=== PATIENT | male | born 1930 | race Caucasian/White ===

== ENCOUNTER → 2016-11-19 | Outpatient (CLI) | payer MEDICARE, BC ==
[~2016-11-19] MED LIST: ANTIVERT 25MG25 MG PO; ASPIRIN 81M81 MG/TA2 PO; CEPHALEXIN500 M1 PO; CORDARONE200 MG/TAB PO; COUMADIN 22.5 MG/TAB PO; FLOMAX 0.40.4 MG/CAP PO; LASIX 20MG TABL20 MG PO; LIQUIFILM TEARS15 ML OS; LOPRESSOR 225 MG/TAB PO; MASON NATURAL1200 MG PO; MAXI VISION PO; MUCINEX D1 TER PO; NORCO 325 MG-51 TAB PO; PACERONE200 MG PO; REFRESH TEARS 115 ML OP; SYNTHROID 0.0.025 MG PO; TIROSINT100 MC1 PO; TIROSINT50 MC1 PO; TYLENOL 500MG500 MG PO; XARELTO10 MG PO; XARELTO20 MG PO; ZESTRIL 5MG5 MG PO; ZESTRIL2.5 MG PO
== END ==
LOC: COL.RAD 09:40
DX: D41.01 Neoplasm of uncertain behavior of right kidney (principal); N40.0 Benign prostatic hyperplasia without lower urinary tract symptoms

== ENCOUNTER → 2017-11-20 | Outpatient (CLI) | payer MEDICARE, BC | LOC: ZCOL.LAB 16:15 | DX: L72.0 Epidermal cyst (principal) ==

== ENCOUNTER 2021-02-27 06:20 | Inpatient (IN) | payer MEDICARE ==
[2021-02-27] VITALS (15 sets, daily range): BP systolic 102–127; BP diastolic 40–84; PULSE 68–91; TEMP 97.1–98.7
[~2021-02-27] VITALS: Ht 183 cm; Wt 85.1 kg
[~2021-02-27 06:20] MED LIST changes: -LIQUIFILM TEARS15 ML OS; -MAXI VISION PO; +TIROSINT112 MC1 PO; -TIROSINT50 MC1 PO
[2021-02-27 07:02] LABS: ALANINE AMINOTRANSFERASE 16 U/L (4-49); ALBUMIN 3.4 gm/dL (3.5-5.0); ALKALINE PHOSPHATASE 37 U/L (50-136); ANION GAP 6 mmol/L (7-16); AST,SGOT 24 U/L (15-37); BILIRUBIN,TOTAL < 0.1 mg/dL (0.0-1.0); BLOOD UREA NITROGEN 59 mg/dL (9-20); CALCIUM 8.1 mg/dL (8.4-10.2); CARBON DIOXIDE 22 mmol/L (22-30); CHLORIDE 110 mmol/L (98-107); CREATININE, serum 1.14 (0.66-1.25); GLUCOSE 121 mg/dL (74-106); LIPASE 47 U/L (23-300); POTASSIUM 4.2 mmol/L (3.4-5.0); SODIUM 138 mmol/L (137-145); TOTAL PROTEIN 6.2 gm/dL (6.4-8.2)
[2021-02-27 07:05] LABS: PARTIAL THROMBOPLASTIN TIME 32.8 SECONDS (26.0-37.0)
[2021-02-27 07:16] LABS: TROPONIN-I < 0.012 ng/mL (0.000-0.035)
[2021-02-27 07:23] LABS: INR 5.8 (0.8-3.0); PROTHROMBIN TIME 65.8 SECONDS (9.7-12.8)
[2021-02-27 07:38] LABS: BASO % 0.4 % (0.0-2.0); EOS # 0.1 (0.0-0.7); EOS % 0.8 % (0-4.0); GRAN # 6.3 (1.4-6.5); GRAN % 73.2 % (42.2-75.2); LYMPH # 1.4 (1.2-3.4); LYMPH % 16.4 % (20.0-51.0); MEAN CELL VOLUME 95 fl (80.0-100.0); MEAN CORPUSCULAR HGB CONC 32 g/dl (33.0-37.0); MEAN PLATELET VOLUME 11.3 fl (7.4-10.4); MONO # 0.7 (0.1-0.6); MONO % 8.1 % (1.7-9.3); PLATELET COUNT 156 K/mm3 (130-400); RED BLOOD COUNT 2.62 M/mm3 (4.20-5.60); REDCELL DISTRIBUTION WIDTH-CV 13.6 % (11.5-14.5)
[2021-02-27 07:40] LABS: HEMOGLOBIN 8.1 g/dl (13.5-18.0); MEAN CORPUSCULAR HEMOGLOBIN 31 pg (27.0-31.0)
[2021-02-27] MEDS ORDERED: LIPITOR 10MG10 MG PO (08:10)
[2021-02-27] MEDS ORDERED: MULTI-VITAMIN W1 TA1 PO (08:20)
[2021-02-27] MEDS ORDERED: VITAMINC1000TA (08:21)
--- NOTE | 2021-02-27 11:38 | NUR ---
ATTEMPTED TO GET ORTHOSTATIC PRESSURES ON PT. PT WENT FROM LAYING TO SITTING WITH LITTLE TO NO DIFFICULTY. WHEN PT WAS STANDING PT SAID THE ROOM STARTED SPINNING AND HE FELL BACK INTO THE BED SUPPORTED BY NURSE AND TECH, PT NOW LAYING FLAT IN BED AND REPORTS MILD DIZZINESS BUT THAT IT WAS LESSENING. UNABLE TO GET STANDING PRESSURE.
[2021-02-27 13:27] LABS: TSH w REFLEX 0.256 uIU/mL (0.465-4.680)
[2021-02-27 13:53] LABS: TROPONIN-I < 0.012 ng/mL (0.000-0.035)
[2021-02-27 15:32] LABS: HEMATOCRIT 21.8 % (42.0-52.0); HEMOGLOBIN 7.2 g/dl (13.5-18.0)
--- NOTE | 2021-02-27 17:08 | NUR ---
CONSULT CALLED TO DR. DISLA
--- NOTE | 2021-02-27 18:31 | NUR ---
BLOOD JUST BECAME AVAILABLE FOR PT, BRUISE TO R FLANK, LIDOCAINE PATCH PLACED, PT REPORTS DISCOMFORT WITH RIBS AND FLANK. TYLENOL GIVEN. OTHER PAIN MEDS AVAILABLE IF THIS DOES NOT SUFFICE. HAS BEEN GIVEN PERMISSION BY RADHA HOLMAN TO STAY THE NIGHT. SON ASHLEY BROWN SHOULD BE COMING TONIGHT ACCORDING TO THE . HAVE NOT ATTEMPTED TO STAND UP PATIENT AGAIN, PT USES URINAL AT BEDSIDE W/O DIZZINESS.
[2021-02-27 19:41] LABS: HEMATOCRIT 19.8 % (42.0-52.0); HEMOGLOBIN 6.5 g/dl (13.5-18.0)
--- NOTE | 2021-02-27 20:00 | NUR ---
Assessment complete. , Mary, currently at bedside. Patient is alert and oriented with a tolerable level of pain, managed with lidocaine patch. HR is normal/regular and lungs are clear. A contusion/laceration is noted on the back of patient's head; it is not actively bleeding. A large bruise in noted on patient's right lower back; no signs of hematoma are noted. Patient is breathing well on RA. 2 units FFP and 1 unit PRBC are ordered to be administered tonight and this process has been initiated. Will continue to monitor.
--- NOTE | 2021-02-27 20:05 | NUR ---
Transfusion of 1 unit FFP initiated at this time. Patient educated on signs of transfusion reaction. Patient has tolerated transfusion so far. Transfusion running at 300 ml/hr. Will continue to monitor. Did remain at bedside for first 15 minutes of transfusion.
--- NOTE | 2021-02-27 21:47 | NUR ---
2ND UNIT OF FFP INITIATED AT THIS TIME. REMAINED AT BEDSIDE FOR FIRST 15 MINUTES. PATIENT TOLERATED WELL; HE AND WERE EDUCATED ON S/S OF TRANSFUSION REACTIONS PRIOR TO INITIATION. WILL CONTINUE TO MONITOR.
[2021-02-28] VITALS (13 sets, daily range): BP systolic 112–131; BP diastolic 47–69; PULSE 64–101; TEMP 97.6–98.5
[2021-02-28 04:03] LABS: HEMOGLOBIN 6.6 g/dl (13.5-18.0)
--- NOTE | 2021-02-28 06:02 | NUR ---
PT TOLERATING 2ND BLOOD ADMINISTRATION WELL. PT IS FREE OF PAIN, FEVER, CHILLS, SOB.VSS. BLOOD INFUSING AT 150 ML/HR. WILL CONTINUE TO MONITOR. CALL LIGHT WITHIN REACH.
--- NOTE | 2021-02-28 08:00 | NUR ---
PT PLEASANT, AOX4, PT REPORTS R FLANK PAIN WITH MOVEMENT BUT NONE AT REST. PT COUGHING VERY FREQUENTLY WHILE EATING BREAKFAST. BLOOD FINISHED INFUSING, PT VITALS TAKEN AND REVIEWED, ASSESSMENT PERFORMED, MEDICATIONS GIVEN, AT BEDSIDE, NO OTHER NEEDS.
[2021-02-28 09:56] LABS: CALCIUM 8.1 mg/dL (8.4-10.2); CREATININE, serum 1.06 (0.66-1.25); POTASSIUM 3.8 mmol/L (3.4-5.0)
[2021-02-28 09:59] LABS: BASO % 0.2 % (0.0-2.0); EOS # 0.1 (0.0-0.7); EOS % 0.7 % (0-4.0); GRAN # 7.4 (1.4-6.5); GRAN % 74.5 % (42.2-75.2); LYMPH # 1.2 (1.2-3.4); LYMPH % 12.4 % (20.0-51.0); MEAN CELL VOLUME 91 fl (80.0-100.0); MEAN CORPUSCULAR HGB CONC 34 g/dl (33.0-37.0); MEAN PLATELET VOLUME 10.6 fl (7.4-10.4); MONO # 1.1 (0.1-0.6); MONO % 11.3 % (1.7-9.3); PLATELET COUNT 123 K/mm3 (130-400); RED BLOOD COUNT 2.47 M/mm3 (4.20-5.60); REDCELL DISTRIBUTION WIDTH-CV 14.2 % (11.5-14.5)
[2021-02-28 10:00] LABS: HEMATOCRIT 22.4 % (42.0-52.0); HEMOGLOBIN 7.6 g/dl (13.5-18.0); MEAN CORPUSCULAR HEMOGLOBIN 31 pg (27.0-31.0)
[2021-02-28 10:09] LABS: INR 3.7 (0.8-3.0); PROTHROMBIN TIME 41.5 SECONDS (9.7-12.8)
--- NOTE | 2021-02-28 14:27 | NUR ---
EJ met with the patient and his , Mary (ph#[phone]), to discuss discharge plan. The patient lives in [place] with Mary. He reports independence with ADLs and has a cane, walker, and wheelchair. The patient's PCP is Dr. Uyen Haque and he receives his medications from [email or web address] in . They report no difficulties obtaining his meds. The patient does not have a DPOA-HC in EMR, but he states that he does have one completed and that it designates his children: Eladio Dodge, Hellen Varela, and Gurjit Varela. His reports that they do not have a copy with them. The patient plans to return home with his upon discharge. PT/OT recommend home health. EJ discussed home health and it's benefits with the patient and his and provided them with Medicare.gov's list of home health agencies that serve [place]. The patient and his report that they are unsure if they want home health upon discharge. The patient has Medicare [employer]. Mary reports that if they do decide they want home health, then they would prefer [facility]. She was agreeable for EJ to contact [facility] to inquire if they take [employer]. EJ then contacted Selena at [facility]. Selena reports that they would have to review the patient's information before deciding on whether they would take the patient's insurance and accept him. EJ informed Mary of this. Mary was agreeable for EJ to go ahead and send the referral to [facility], but they have not decided if they will want home health or not yet upon discharge. EJ to continue to follow. *Discharge plan: home with and possibly home health*
--- NOTE | 2021-02-28 17:29 | NUR ---
PT PLEASANT, AOX4, DID REPORT GETTING DIZZY WALKING WITH THERAPY, PT HAS BEEN EATING WELL, C/O PAIN WITH MOVEMENT BUT NONE AT REST, LIDOCAINE PATCH IN PLACE, AT BEDSIDE, NEURO CONSULTED, NO OTHER NEEDS AT THIS TIME.
[2021-03-01] VITALS (24 sets, daily range): BP systolic 85–149; BP diastolic 33–71; PULSE 62–97; TEMP 97.6–98.4
--- NOTE | 2021-03-01 00:46 | NUR ---
PT LAYING IN BED WITH AT BEDSIDE. PT A/O X4, VSS, 02 ROOM AIR. PT REPORTS FEELING SLIGHTLY NAUSEATED, ONLY DIZZY UPON TRANSFERRING FROM POSITION TO POSITION. CURRENTLY RATES PAIN AT 3/10, WITH CONSTANT DISCOMFORT TO HIS LOWER BACK SIDE . PT STATES HE FEELS HE A BIT CONGESTED WITH MUCUS BUILDUP. WILL F/U. PT EXPRESSES NO ADDITIONAL NEEDS AT THIS TIME. CALL LIGHT WITHIN REACH.
--- NOTE | 2021-03-01 05:07 | NUR ---
PT REPORTS PAIN TO LOWER BACK, RATES PAIN 8/10. PT MEDICATED AND REPOSITIONED. DENIES SOB, N/V/D. NPO STATUS MAINTAINED. CALL LIGHT WITHIN REACH.
[2021-03-01 07:03] LABS: CALCIUM 8.1 mg/dL (8.4-10.2); CREATININE, serum 1.07 (0.66-1.25)
[2021-03-01 07:05] LABS: BASO % 0.2 % (0.0-2.0); EOS # 0.2 (0.0-0.7); EOS % 2.4 % (0-4.0); GRAN # 6.3 (1.4-6.5); GRAN % 66.5 % (42.2-75.2); LYMPH # 1.8 (1.2-3.4); LYMPH % 19.4 % (20.0-51.0); MEAN CELL VOLUME 93 fl (80.0-100.0); MEAN CORPUSCULAR HGB CONC 34 g/dl (33.0-37.0); MEAN PLATELET VOLUME 10.7 fl (7.4-10.4); MONO % 10.5 % (1.7-9.3); PLATELET COUNT 127 K/mm3 (130-400); RED BLOOD COUNT 2.18 M/mm3 (4.20-5.60); REDCELL DISTRIBUTION WIDTH-CV 15.2 % (11.5-14.5)
[2021-03-01 07:06] LABS: INR 3.2 (0.8-3.0); PROTHROMBIN TIME 36.4 SECONDS (9.7-12.8)
[2021-03-01 07:08] LABS: HEMATOCRIT 20.2 % (42.0-52.0); HEMOGLOBIN 6.8 g/dl (13.5-18.0); MEAN CORPUSCULAR HEMOGLOBIN 31 pg (27.0-31.0)
--- NOTE | 2021-03-01 08:35 | NUR ---
Pt down for Lexiscan at this time.
--- NOTE | 2021-03-01 10:00 | NUR ---
Shift assessment complete. A&Ox4. Heart RRR. Lungs CTA. Reports no BM for 4-5 days, colace and miralax given per orders. Abdomen soft, flat, non-tender. Bowel sounds active all quadrants. Large bruise to left lower back, pt reports some pain at this site, worse w/movement. Declines pain medication at this time. Laceration to scalp w/magno. Denies needs. Call light in reach.
--- NOTE | 2021-03-01 11:01 | NUR ---
Selena, at [facility], reports that they are able to accept the patient for services.
[2021-03-01 12:29] LABS: IRON,SERUM 35 ug/dL (35-150)
[2021-03-01 12:38] LABS: TOTAL IRON BINDING CAPACITY 243 ug/dL (261-462)
--- NOTE | 2021-03-01 12:43 | NUR ---
Blood transfusion started at this time. VSS.
--- NOTE | 2021-03-01 14:45 | NUR ---
Blood transfusion complete. Pt tolerated well. Vitals remain stable.
[2021-03-01 16:26] LABS: HEMATOCRIT 24.2 % (42.0-52.0)
[2021-03-01 16:26] LABS: COLLECTION METHOD CLEAN CATCH
[2021-03-01 16:33] LABS: MUCOUS Present /lpf; PH 5 (5-8); SQUAMOUS EPITHELIAL None Seen /hpf; URINE APPEARANCE Hazy; URINE BACTERIA None Seen /hpf; URINE BILIRUBIN Negative (NEGATIVE); URINE BLOOD Negative (NEGATIVE); URINE COLOR Yellow; URINE GLUCOSE Negative (NEGATIVE); URINE KETONE Negative (NEGATIVE); URINE LEUKOCYTE ESTERASE Negative (NEGATIVE); URINE NITRATE Negative (NEGATIVE); URINE PROTEIN(semi-quant) Negative (NEGATIVE); URINE RBC 0-2 /hpf; URINE UROBILINOGEN Negative (NEGATIVE)
--- NOTE | 2021-03-01 20:30 | NUR ---
Initial shift assessment done- Pt states having some pain to right flank/back,,bruise noted,, pt given a [place] as ordered, Tele on, using urinal -voiding marquis colored urine. SCD,s put on patient at this time per order, Pt understands we need a stool to check for blood-- he will call when needs to use the bathroom, bed alarm on, is in the room with patient. VSS.
[2021-03-02] VITALS (8 sets, daily range): BP systolic 93–147; BP diastolic 44–92; PULSE 61–112; TEMP 97.5–98.6
--- NOTE | 2021-03-02 05:37 | NUR ---
Quiet night- has been sleeping well, just given the one [place] at start of shift--using urinal and did walk to BR once during the night with assistance , steady on feet. No stools
[2021-03-02 06:32] LABS: MEAN CELL VOLUME 91 fl (80.0-100.0); MEAN CORPUSCULAR HGB CONC 33 g/dl (33.0-37.0); MEAN PLATELET VOLUME 10.7 fl (7.4-10.4); PLATELET COUNT 148 K/mm3 (130-400); RED BLOOD COUNT 2.68 M/mm3 (4.20-5.60); REDCELL DISTRIBUTION WIDTH-CV 17.9 % (11.5-14.5)
[2021-03-02 06:40] LABS: CALCIUM 8.2 mg/dL (8.4-10.2); CREATININE, serum 1.05 (0.66-1.25); INR 2.1 (0.8-3.0); PROTHROMBIN TIME 23.7 SECONDS (9.7-12.8)
[2021-03-02 06:42] LABS: HEMATOCRIT 24.5 % (42.0-52.0); HEMOGLOBIN 8.1 g/dl (13.5-18.0); MEAN CORPUSCULAR HEMOGLOBIN 30 pg (27.0-31.0)
[2021-03-02] MEDS ORDERED: LIQUIFILM TEARS15 ML OS (08:09)
[2021-03-02] MEDS ORDERED: MAXI VISION PO (08:10)
--- NOTE | 2021-03-02 08:15 | NUR ---
Shift assessment complete. A&Ox4. Neuro checks WNL. Heart RRR. Lungs CTA. Abdomen firm, non-tender. Bowel sounds active all quadrants. Miralax and colace given as ordered and pt brought a cup of prune juice. Reports back pain is tolerable when sitting in bed. Does report some dizziness w/sitting or standing up. Encouraged to rise slowly and always call for assistance. Denies other needs. Continuing to monitor.
[2021-03-02] MEDS ORDERED: FLONASE NASAL S16 GM NS (09:05)
[2021-03-02] MEDS ORDERED: ZYRTEC 10MG10 MG PO (09:05)
[2021-03-02] MEDS ORDERED: BLUE-EMU LIDOC1 EACH TP (09:06)
[2021-03-02] MEDS ORDERED: LEVOXYL0.1 MG PO (09:07)
--- NOTE | 2021-03-02 20:30 | NUR ---
Initial shift assessment done-denies pain at this time--doing bowel prep at this time- tanehsa--drinking a glass every about 30 minutes-- tolerating well--no stools yet.Tele on, 64-paced. Alert/oriented- understands to call for assistance to bathroom- call light in reach.
--- NOTE | 2021-03-03 02:00 | NUR ---
Has finished all of the [place] prep- having liquid brown stools.
[2021-03-03 04:30] VITALS: BP 132/54; PULSE 60; TEMP 97.6
--- NOTE | 2021-03-03 05:08 | NUR ---
Has been up to the bathroom with assistance throughout the whole night- has only slept for 30min-1 hr,, stools now are clear yellowish liquid with some sediment. VSS. No requests. Has already signed the consent for this morning.
[2021-03-03 07:24] VITALS: BP 150/63; PULSE 61; TEMP 97.8
[2021-03-03 07:38] LABS: MEAN CELL VOLUME 93 fl (80.0-100.0); MEAN CORPUSCULAR HGB CONC 33 g/dl (33.0-37.0); MEAN PLATELET VOLUME 10.4 fl (7.4-10.4); PLATELET COUNT 181 K/mm3 (130-400); RED BLOOD COUNT 2.83 M/mm3 (4.20-5.60); REDCELL DISTRIBUTION WIDTH-CV 17.8 % (11.5-14.5)
[2021-03-03 07:42] LABS: INR 1.7 (0.8-3.0)
[2021-03-03 07:43] LABS: HEMATOCRIT 26.3 % (42.0-52.0); HEMOGLOBIN 8.6 g/dl (13.5-18.0); MEAN CORPUSCULAR HEMOGLOBIN 30 pg (27.0-31.0)
[2021-03-03 07:53] LABS: CALCIUM 8.3 mg/dL (8.4-10.2); POTASSIUM 3.6 mmol/L (3.4-5.0)
--- NOTE | 2021-03-03 09:00 | NUR ---
Patient just got back to his room from Endoscopy, he is alert/oriented, VSS, pain free, denies needs
[2021-03-03 09:07] VITALS: BP 118/56; PULSE 65; TEMP 98
[2021-03-03 09:30] VITALS: BP 132/52; PULSE 65
--- NOTE | 2021-03-03 12:38 | NUR ---
EJ informed by physician that patient would be discharging. EJ obtained DC orders and faxed to [facility] agency. [facility] agency staff contacted by EJ to inform agency that patient would be discharging and DC paperwork was faxed. Agency staff stated they will give patient a call on 03/04/21. EJ informed patient that [place] staff member would be contacting them. Nothing further.
--- NOTE | 2021-03-03 15:19 | NUR ---
Patient discharging home, instructed to follow up with PCP/Cardiology/Neuro as scheduled, discussed medications changes and new meds, scripts sent to [facility] pharmacy in [place] for him, IV and tele removed, patient is leaving with his , I escorted him out by wheelchair
== END 2021-03-03 14:00 | disposition home or self-care (01) | DRG 312 ==
LOC: COL.ER 06:20 → MEDICAL 08:07
PROVIDERS: Emergency Medicine; Physician Assistant; Surgery; ADMIT Family Medicine
PROC: 0HQ0XZZ Repair Scalp Skin, External Approach (ICD-10-PCS; principal; 2021-02-27)
PROC: 0DJD8ZZ Inspection of Lower Intestinal Tract, Via Natural or Artificial Opening Endoscopic (ICD-10-PCS; 2021-03-03)
PROC: 0DJ08ZZ Inspection of Upper Intestinal Tract, Via Natural or Artificial Opening Endoscopic (ICD-10-PCS; 2021-03-03 08:00)
DX: I95.1 Orthostatic hypotension (principal); S22.41XA Multiple fractures of ribs, right side, initial encounter for closed fracture; D62 Acute posthemorrhagic anemia; C64.1 Malignant neoplasm of right kidney, except renal pelvis; I42.8 Other cardiomyopathies; I48.20 Chronic atrial fibrillation, unspecified; W18.12XA Fall from or off toilet with subsequent striking against object, initial encounter; Y92.012 Bathroom of single-family (private) house as the place of occurrence of the external cause; S01.01XA Laceration without foreign body of scalp, initial encounter; I44.7 Left bundle-branch block, unspecified; Z95.810 Presence of automatic (implantable) cardiac defibrillator; Z79.01 Long term (current) use of anticoagulants; Z79.82 Long term (current) use of aspirin; R94.31 Abnormal electrocardiogram [ECG] [EKG]; R79.1 Abnormal coagulation profile; E03.9 Hypothyroidism, unspecified; E78.5 Hyperlipidemia, unspecified; N40.0 Benign prostatic hyperplasia without lower urinary tract symptoms; H91.90 Unspecified hearing loss, unspecified ear; G90.09 Other idiopathic peripheral autonomic neuropathy; K59.00 Constipation, unspecified; R19.5 Other fecal abnormalities
CPT/HCPCS: 99232-AI; 99233-AI; 99239; A9284; A9500; C9113; J2704; J2785; J7030; P9016; Q9967